=== PATIENT | male | born 1950 | race Caucasian/White ===

== ENCOUNTER → 2023-06-02 15:06 | Outpatient (REF) | payer MEDICARE, SELFPAY | LOC: RAD 15:06 | PROVIDERS: ATTENDING PHYSICIAN Nurse Practitioner Family | DX: M54.50 Low back pain, unspecified (principal); M54.2 Cervicalgia | CPT/HCPCS: 72050; 72110 ==

== ENCOUNTER → 2023-06-10 07:40 | Outpatient (REF) | payer MEDICARE, SELFPAY | LOC: EMG 07:40 | PROVIDERS: ATTENDING PHYSICIAN Nurse Practitioner Family | DX: R20.2 Paresthesia of skin (principal); R20.0 Anesthesia of skin; M54.12 Radiculopathy, cervical region | CPT/HCPCS: 95886; 95911 ==

== ENCOUNTER → 2023-07-07 15:59 | Outpatient (REF) | payer MEDICARE, SELFPAY | LOC: RAD 15:59 | PROVIDERS: ATTENDING PHYSICIAN Nurse Practitioner Family | DX: M25.552 Pain in left hip (principal) | CPT/HCPCS: 73502 ==

== ENCOUNTER → 2023-07-28 15:03 | Outpatient (REF) | payer MEDICARE, SELFPAY | LOC: RAD 15:03 | PROVIDERS: ATTENDING PHYSICIAN Physical Medicine & Rehabilitation; FAMILY PHYSICIAN Internal Medicine | DX: M54.16 Radiculopathy, lumbar region (principal) | CPT/HCPCS: 72131 ==

== ENCOUNTER → 2023-08-10 14:00 | Outpatient (REF) | payer MEDICARE, SELFPAY | LOC: RCS 14:00 | PROVIDERS: ATTENDING PHYSICIAN Physical Medicine & Rehabilitation; FAMILY PHYSICIAN Family Medicine | DX: Z01.818 Encounter for other preprocedural examination (principal) | CPT/HCPCS: 93005 ==

== ENCOUNTER → 2023-09-28 09:34 | Outpatient (REF) | payer MEDICARE, SELFPAY | LOC: RAD 09:34 | PROVIDERS: ATTENDING PHYSICIAN Surgery Vascular Surgery; FAMILY PHYSICIAN Internal Medicine Geriatric Medicine | DX: I71.02 Dissection of abdominal aorta (principal) | CPT/HCPCS: 76770 ==

== ENCOUNTER → 2024-01-21 09:09 | Outpatient (REF) | payer MEDICARE, SELFPAY ==
[2024-01-21 10:02] LABS: % Basophils 0.8 % (0-2); % Eosinophils 2.6 % (0-6); % Immature Granulocytes 0.2 % (0-0.5); % Lymphocytes 22.5 % (20.5-51.1); % Neutrophils 63.9 % (42.2-75.2); Absolute Eosinophils 0.1 10^3/uL (0-0.7); Absolute Lymphocytes 1.1 10^3/uL (1.2-3.4); Absolute Monocytes 0.5 10^3/uL (0.1-0.6); Absolute Neutrophils 3.2 10^3/uL (1.4-6.5); Hematocrit 33.1 % (39.0-52.0); Hemoglobin 10.2 g/dL (13.0-18.0); Mean Corp Hgb Conc. 30.8 g/dL (33.0-37.0); Mean Corpuscular Hgb 30.9 pg (27.0-31.0); Mean Corpuscular Volume 100.3 fL (80.0-94.0); Mean Platelet Volume 9.7 fL (7.4-10.4); Nucleated Red Blood Cells % 0 % (-); Platelet Count 291 10^3/uL (130-400); Red Cell Dist. Width 13.9 % (11.5-14.5)
[2024-01-21 10:57] LABS: ALT (SGPT) 18 U/L (0-50); AST (SGOT) 30 U/L (17-59); Albumin 3.9 g/dl (3.5-5.0); Alkaline Phosphatase 46 U/L (38-126); Blood Urea Nitrogen 15 mg/dl (9-20); Calcium 9.7 mg/dl (8.4-10.2); Carbon Dioxide 27 mmol/L (22-30); Chloride 106 mmol/L (98-107); Glucose 86 mg/dl (70-99); HDL Cholesterol 76 mg/dl; LDL Cholesterol, Calculated 75 mg/dl; Potassium 4.9 mmol/L (3.5-5.1); Sodium 142 mmol/L (135-145); Total Bilirubin 0.4 mg/dl (0.2-1.3); Total Cholesterol 164 mg/dl (50-199); Triglyceride 67 mg/dl (10-149); Very Low Density Lipoprotein 13 mg/dl (0-30); eGFR > 60.00
[2024-01-21 11:12] LABS: Vitamin D, 25-OH*** 45.6 ng/mL (30-80)
[2024-01-21 16:38] LABS: Urine Albumin Negative (Neg - Trace); Urine Bilirubin Negative (Negative); Urine Character Clear (Clear); Urine Color Straw; Urine Glucose Negative (Negative); Urine Ketone Negative (Negative); Urine Leukocyte Negative (Negative); Urine Nitrite Negative (Negative); Urine Occult Blood Negative (Negative); Urine Urobilinogen Negative (Neg - 1+)
== END ==
LOC: OLABPV 09:09
PROVIDERS: ATTENDING PHYSICIAN Internal Medicine Geriatric Medicine
DX: E78.00 Pure hypercholesterolemia, unspecified (principal); I25.2 Old myocardial infarction; I50.22 Chronic systolic (congestive) heart failure; Z95.1 Presence of aortocoronary bypass graft; R42 Dizziness and giddiness; H81.13 Benign paroxysmal vertigo, bilateral; E55.9 Vitamin D deficiency, unspecified; G60.3 Idiopathic progressive neuropathy; Z13.89 Encounter for screening for other disorder; D64.9 Anemia, unspecified; M25.552 Pain in left hip
CPT/HCPCS: 36415; 80053; 80061; 81003; 82306; 85025

== ENCOUNTER → 2024-05-03 14:33 | Outpatient (REF) | payer MEDICARE, SELFPAY | LOC: RAD 14:33 | PROVIDERS: ATTENDING PHYSICIAN Internal Medicine Geriatric Medicine | DX: E78.00 Pure hypercholesterolemia, unspecified (principal); I71.02 Dissection of abdominal aorta; I25.2 Old myocardial infarction; I50.22 Chronic systolic (congestive) heart failure; Z95.1 Presence of aortocoronary bypass graft; R42 Dizziness and giddiness; H81.13 Benign paroxysmal vertigo, bilateral; E55.9 Vitamin D deficiency, unspecified; G60.3 Idiopathic progressive neuropathy; Z13.89 Encounter for screening for other disorder; D64.9 Anemia, unspecified; M25.552 Pain in left hip; M75.41 Impingement syndrome of right shoulder | CPT/HCPCS: 72110; 72202 ==

== ENCOUNTER → 2024-06-20 09:52 | Outpatient (REF) | payer MEDICARE, SELFPAY | LOC: RAD 09:52 | PROVIDERS: ATTENDING PHYSICIAN Internal Medicine Geriatric Medicine | DX: M89.9 Disorder of bone, unspecified (principal); Z13.820 Encounter for screening for osteoporosis; M85.80 Other specified disorders of bone density and structure, unspecified site; M81.0 Age-related osteoporosis without current pathological fracture | CPT/HCPCS: 77080 ==

== ENCOUNTER → 2024-07-14 12:10 | Outpatient (REF) | payer MEDICARE, SELFPAY ==
[2024-07-14 12:33] LABS: % Basophils 0.7 % (0-2); % Eosinophils 0.7 % (0-6); % Immature Granulocytes 0.2 % (0-0.5); % Lymphocytes 19.2 % (20.5-51.1); % Monocytes 7.9 % (1.7-9.3); % Neutrophils 71.3 % (42.2-75.2); Absolute Lymphocytes 1.2 10^3/uL (1.2-3.4); Absolute Monocytes 0.5 10^3/uL (0.1-0.6); Absolute Neutrophils 4.4 10^3/uL (1.4-6.5); Hematocrit 39.5 % (39.0-52.0); Hemoglobin 12.7 g/dL (13.0-18.0); Mean Corp Hgb Conc. 32.2 g/dL (33.0-37.0); Mean Corpuscular Hgb 30.5 pg (27.0-31.0); Mean Corpuscular Volume 94.7 fL (80.0-94.0); Nucleated Red Blood Cells % 0 % (-); Platelet Count 296 10^3/uL (130-400); Red Blood Cell Count 4.17 10^6/uL (4.70-6.10); White Blood Cell Count 6.1 10^3/uL (4.8-10.8)
[2024-07-14 12:47] LABS: ALT (SGPT) 26 U/L (0-50); AST (SGOT) 33 U/L (17-59); Albumin 4.4 g/dl (3.5-5.0); Alkaline Phosphatase 52 U/L (38-126); Blood Urea Nitrogen 16 mg/dl (9-20); Carbon Dioxide 25 mmol/L (22-30); Chloride 110 mmol/L (98-107); Glucose 80 mg/dl (70-99); HDL Cholesterol 62 mg/dl; LDL Cholesterol, Calculated 80 mg/dl; Potassium 4.7 mmol/L (3.5-5.1); Sodium 142 mmol/L (135-145); Total Bilirubin 0.5 mg/dl (0.2-1.3); Total Cholesterol 156 mg/dl (50-199); Total Protein 6.8 g/dl (6.3-8.2); Triglyceride 71 mg/dl (10-149); Very Low Density Lipoprotein 14 mg/dl (0-30); eGFR 56.93
[2024-07-14 13:08] LABS: Urine Character Clear (Clear); Urine Color Yellow
[2024-07-14 13:09] LABS: Urine Albumin Negative (Neg - Trace); Urine Glucose Negative (Negative); Urine Ketone Negative (Negative); Urine Leukocyte Negative (Negative); Urine Nitrite Negative (Negative); Urine Occult Blood 1+ (Negative); Urine Specific Gravity 1.015 (<1.030); Urine Urobilinogen Negative (Neg - 1+); Vitamin D, 25-OH*** 38.7 ng/mL (30-80)
[2024-07-14 13:10] LABS: Urine Bilirubin Negative (Negative)
[2024-07-14 14:54] LABS: Urine Amorphous Seen; Urine Squamous Cell 0-2 /LPF (Few)
[2024-07-14 14:55] LABS: Urine Red Blood Cell 0-2 /HPF (0-2); Urine White Cell 0-2 /HPF (0-5)
== END ==
LOC: OLABPV 12:10
PROVIDERS: ATTENDING PHYSICIAN Internal Medicine Geriatric Medicine
DX: E78.00 Pure hypercholesterolemia, unspecified (principal); I71.02 Dissection of abdominal aorta; I25.2 Old myocardial infarction; I50.22 Chronic systolic (congestive) heart failure; Z95.1 Presence of aortocoronary bypass graft; R42 Dizziness and giddiness; H81.13 Benign paroxysmal vertigo, bilateral; E55.9 Vitamin D deficiency, unspecified; G60.3 Idiopathic progressive neuropathy; D64.9 Anemia, unspecified; M25.552 Pain in left hip; M75.41 Impingement syndrome of right shoulder; I95.1 Orthostatic hypotension
CPT/HCPCS: 36415; 80053; 80061; 81003; 81015; 82306; 85025

== ENCOUNTER → 2024-08-09 10:27 | Outpatient (REF) | payer MEDICARE, SELFPAY ==
[2024-08-09 10:59] LABS: % Basophils 0.9 % (0-2); % Eosinophils 1.5 % (0-6); % Immature Granulocytes 0.4 % (0-0.5); % Lymphocytes 20.9 % (20.5-51.1); % Monocytes 7.8 % (1.7-9.3); % Neutrophils 68.5 % (42.2-75.2); Absolute Basophils 0.1 10^3/uL (0-0.2); Absolute Eosinophils 0.1 10^3/uL (0-0.7); Absolute Lymphocytes 1.1 10^3/uL (1.2-3.4); Absolute Monocytes 0.4 10^3/uL (0.1-0.6); Absolute Neutrophils 3.6 10^3/uL (1.4-6.5); Hematocrit 36.9 % (39.0-52.0); Hemoglobin 11.6 g/dL (13.0-18.0); Mean Corp Hgb Conc. 31.4 g/dL (33.0-37.0); Mean Corpuscular Hgb 30.3 pg (27.0-31.0); Mean Corpuscular Volume 96.3 fL (80.0-94.0); Mean Platelet Volume 9.6 fL (7.4-10.4); Nucleated Red Blood Cells % 0 % (-); Platelet Count 245 10^3/uL (130-400); Red Blood Cell Count 3.83 10^6/uL (4.70-6.10); Red Cell Dist. Width 14.8 % (11.5-14.5); White Blood Cell Count 5.3 10^3/uL (4.8-10.8)
[2024-08-09 11:21] LABS: ALT (SGPT) 15 U/L (0-50); AST (SGOT) 34 U/L (17-59); Albumin 4.3 g/dl (3.5-5.0); Alkaline Phosphatase 49 U/L (38-126); Blood Urea Nitrogen 16 mg/dl (9-20); Calcium 9.6 mg/dl (8.4-10.2); Carbon Dioxide 24 mmol/L (22-30); Chloride 106 mmol/L (98-107); Glucose 76 mg/dl (70-99); Potassium 4.3 mmol/L (3.5-5.1); Sodium 136 mmol/L (135-145); Total Bilirubin 0.6 mg/dl (0.2-1.3); Total Protein 6.5 g/dl (6.3-8.2); eGFR 56.93
[2024-08-09 12:18] LABS: NT-proBNP 745 pg/ml
== END ==
LOC: OLABPV 10:27
PROVIDERS: ATTENDING PHYSICIAN Internal Medicine Geriatric Medicine
DX: E78.00 Pure hypercholesterolemia, unspecified (principal); I71.02 Dissection of abdominal aorta; I25.2 Old myocardial infarction; I50.22 Chronic systolic (congestive) heart failure; Z95.1 Presence of aortocoronary bypass graft; R42 Dizziness and giddiness; H81.13 Benign paroxysmal vertigo, bilateral; E55.9 Vitamin D deficiency, unspecified; G60.3 Idiopathic progressive neuropathy; D64.9 Anemia, unspecified; M25.552 Pain in left hip; Z13.89 Encounter for screening for other disorder; M75.41 Impingement syndrome of right shoulder; I95.1 Orthostatic hypotension
CPT/HCPCS: 36415; 80053; 83880; 85025

== ENCOUNTER → 2024-08-25 09:38 | Outpatient (REF) | payer MEDICARE, SELFPAY ==
[2024-08-25 11:04] LABS: % Basophils 0.9 % (0-2); % Eosinophils 2.1 % (0-6); % Immature Granulocytes 0.3 % (0-0.5); % Lymphocytes 22.4 % (20.5-51.1); % Monocytes 8.5 % (1.7-9.3); % Neutrophils 65.8 % (42.2-75.2); Absolute Basophils 0.1 10^3/uL (0-0.2); Absolute Eosinophils 0.1 10^3/uL (0-0.7); Absolute Lymphocytes 1.3 10^3/uL (1.2-3.4); Absolute Monocytes 0.5 10^3/uL (0.1-0.6); Absolute Neutrophils 3.8 10^3/uL (1.4-6.5); Hematocrit 43.1 % (39.0-52.0); Hemoglobin 13.7 g/dL (13.0-18.0); Mean Corp Hgb Conc. 31.8 g/dL (33.0-37.0); Mean Corpuscular Hgb 30.7 pg (27.0-31.0); Mean Corpuscular Volume 96.6 fL (80.0-94.0); Mean Platelet Volume 9.9 fL (7.4-10.4); Nucleated Red Blood Cells % 0 % (-); Platelet Count 330 10^3/uL (130-400); Red Blood Cell Count 4.46 10^6/uL (4.70-6.10); Red Cell Dist. Width 13.9 % (11.5-14.5); White Blood Cell Count 5.8 10^3/uL (4.8-10.8)
[2024-08-25 11:35] LABS: Iron 97 ug/dl (49-181)
[2024-08-25 11:47] LABS: Percent Saturation 28 % (20-50); Total Iron Binding Capacity 336 ug/dl (261-462)
[2024-08-25 12:17] LABS: Ferritin 37.8 ng/ml (17.9-464.0)
== END ==
LOC: OLABPV 09:38
PROVIDERS: ATTENDING PHYSICIAN Internal Medicine Geriatric Medicine
DX: E78.00 Pure hypercholesterolemia, unspecified (principal); I25.2 Old myocardial infarction; I50.22 Chronic systolic (congestive) heart failure; Z95.1 Presence of aortocoronary bypass graft; R42 Dizziness and giddiness; H81.13 Benign paroxysmal vertigo, bilateral; E55.9 Vitamin D deficiency, unspecified; G60.3 Idiopathic progressive neuropathy; D64.9 Anemia, unspecified; M25.552 Pain in left hip; Z13.89 Encounter for screening for other disorder; M75.41 Impingement syndrome of right shoulder; I95.1 Orthostatic hypotension
CPT/HCPCS: 36415; 82728; 83540; 83550; 85025

== ENCOUNTER → 2024-10-05 07:52 | Outpatient (REF) | payer MEDICARE, SELFPAY | LOC: REG 07:52 | PROVIDERS: ATTENDING PHYSICIAN Physician Assistant; FAMILY PHYSICIAN Internal Medicine Geriatric Medicine | DX: I71.02 Dissection of abdominal aorta (principal) | CPT/HCPCS: 36415; 76770 ==

== ENCOUNTER 2024-12-19 18:23 | Inpatient (IN) | payer MEDICARE, SELFPAY ==
[2024-12-19] VITALS (8 sets, daily range): BP systolic 109–147; BP diastolic 56–83; BMI 24.5
[2024-12-19 11:00] LABS: Hematocrit 40.7 % (39.0-52.0); Hemoglobin 12.9 g/dL (13.0-18.0); Mean Corp Hgb Conc. 31.7 g/dL (33.0-37.0); Mean Corpuscular Volume 97.4 fL (80.0-94.0); Nucleated Red Blood Cells % 0 % (-); Platelet Count 212 10^3/uL (130-400); Red Cell Dist. Width 15.1 % (11.5-14.5)
[2024-12-19 11:14] LABS: ALT (SGPT) 21 U/L (0-50); AST (SGOT) 52 U/L (17-59); Albumin 4.5 g/dl (3.5-5.0); Alkaline Phosphatase 41 U/L (38-126); Blood Urea Nitrogen 21 mg/dl (9-20); Calcium 9.5 mg/dl (8.4-10.2); Carbon Dioxide 21 mmol/L (22-30); Chloride 111 mmol/L (98-107); Glucose 127 mg/dl (70-99); Potassium 3.9 mmol/L (3.5-5.1); Sodium 142 mmol/L (135-145); Total Protein 6.9 g/dl (6.3-8.2); eGFR 47.95
--- NOTE | 2024-12-19 12:26 | ED.GENMED ---
History of Present Illness
General
Chief Complaint: Change in Mental Status
Source: patient and spouse
Exam Limitations: none
Time Seen by Provider: 12/19/24 11:31
Nursing documentation reviewed up to this point in time: agreed with
History of Present Illness
History of Present Illness:
Patient is a 74-year-old male presents to the ED for evaluation. at bedside reports patient started with hallucinations on Wednesday both auditory and visual. This is a sudden change. Patient has a little bit of intermittent confusion in the
past but nothing out of the ordinary as per . but she does report that she is also worried that there may be a Parkinson's component. He has never been diagnosed with Parkinson's but he does seem to have issues walking he seems very stiff at
times. He notes that he is getting 27. They were sent by family doctor.
Patient's medications include methocarbamol aspirin Lipitor and a metoprolol.
Phy Exam
General Physical Exam
General Presentation: no apparent distress
General age: appears stated age
General Skin: warm and dry
General Habitus: elderly
General Mental: alert
General Hydration: appears well hydrated
Cardiovascular Exam
Cardiovascular Exam: regular rate/rhythm, no murmur and normal peripheral pulses
Pulmonary Exam
Pulmonary Exam: lungs clear and no respiratory distress
Neurological Exam
Neurological Exam: alert and oriented x3
Musculoskeletal Exam
Musculoskeletal Exam: full ROM
Skin Exam
Skin Exam: normal color and warm/dry
Psychiatric Exam
Psychiatric Exam: normal mood/affect
Course
Orders/Labs/Results
Orders:
Orders
12/19/24 10:47
CMP [Comprehensive Metabolic Panel] Urgent
Complete Blood Count/With Diff Urgent
Urinalysis Reflex To Culture Urgent
Date Specimen was Collected: 12/19/24
Time Specimen was Collected: 10:37
Urine Microscopic Reflex Cult Urgent
12/19/24 12:43
CT Head W/o Iv Contrast Urgent
Comment:
Reason For Exam: change in MS
12/19/24 12:53
0.9% Sodium Chloride 1000 ml [Nss] 1,000 ml IV BOLUS
Abnormal Lab Results
12/19/24
10:47
WBC 4.1 L 10^3/uL
(4.8-10.8)
RBC 4.18 L 10^6/uL
(4.70-6.10)
Hgb 12.9 L g/dL
(13.0-18.0)
MCV 97.4 H fL
(80.0-94.0)
MCHC 31.7 L g/dL
(33.0-37.0)
RDW 15.1 H %
(11.5-14.5)
Absolute Lymphs (auto) 1.0 L 10^3/uL
(1.2-3.4)
Chloride 111 H mmol/L
(98-107)
Carbon Dioxide 21 L mmol/L
(22-30)
BUN 21 H mg/dl
(9-20)
Creatinine 1.5 H mg/dL
(0.7-1.3)
Glucose 127 H mg/dl
(70-99)
Urine Ketones 1+ A
(Negative)
Ur Occult Blood Reflex 2+ A
(Negative)
Urine Bacteria (Reflex) Few A
(Negative)
Urine Albumin (Reflex) 2+ A
(Neg - Trace)
12/19/24 10:47
12/19/24 10:47
Vital Signs
Initial and Last Documented VS:
Initial Vital Signs
Temp Pulse Resp BP Pulse Ox
97.9 F 63 18 110/59 100
12/19/24 10:30 12/19/24 10:30 12/19/24 10:30 12/19/24 10:30 12/19/24 10:30
Last Documented Vital Signs
Temp Pulse Resp BP Pulse Ox
97.9 F 57 14 109/83 100
12/19/24 10:30 12/19/24 14:15 12/19/24 14:15 12/19/24 14:00 12/19/24 12:27
Lime Sludge Mixer consulted with Physician
Lime Sludge Mixer consulted with physician?: Yes
Name of Physician Consulted: Elias
MDM/Problems Addressed
Differential Diagnosis Includes:
Not limited to acute infection dehydration dementia/congnitive cause
MDM/Problems Addressed:
As documented patient is a 74-year-old male brought in by for hallucinations over the weekend. She reports this is all new for patient. He is awake alert he is confused as to why he is here. He does follow commands. He himself has no
complaints. CAT scan is unremarkable no neurological deficits. He is mildly dehydrated on all labs. UA negative.
*Radiology
Radiology exam reviewed: radiology read reviewed
*Pulse Oximetry
SaO2: 100
Oxygen Mode of Delivery: Room air
Patient hypoxic: no
*Critical Care Note
Total Time (30-74mins, 75-104mins- exclusive of procedures): Not Applicable
ED Attending Note
-
Portions of this chart may have been created with voice recognition software.� Occasional wrong word or��sound alike� substitutions may have occurred due to the inherent limitations of voice recognition software.
Discharge Plan
Departure
Patient Disposition: Admit
Date of Disposition: 12/19/24
Time of Disposition: 15:06
Admit to: Med/Surg
Admit to doctor: hospitalist
Presentation/result/management discussed w/ accepting MD/DO: Hospitalist
Patient with high blood pressure during this ER visit?: No
Condition: Fair
Discharge Problem:
Hallucinations, Altered mental status
Referrals:
Job Cruz MD [Family Provider, Internal Medicine]
Interventions
Interventions:
*Risk Screen - Suicide Last Done: 12/19/24 10:30
*General Assessment Last Done: 12/19/24 10:30
*Neglect/Abuse Screening Last Done: 12/19/24 10:30
*ED- Fall Risk Assessment Last Done: 12/19/24 10:36
*ED COVID-19 Vaccine History Last Done: 12/19/24 10:36
*ED Influenza Vaccine History Last Done: 12/19/24 10:36
ED- Pulmonary Assessment Last Done: 12/19/24 12:17
ED- Neurological Assessment Last Done: 12/19/24 12:17
ED- Cardiac Assessment Last Done: 12/19/24 12:17
ED Swallowing Screen Last Done: 12/19/24 12:17
Discharge Date and Time
Print Language: SYRIAC
[2024-12-19 12:34] LABS: Urine Character Slightly Cloudy (Clear)
[2024-12-19 12:45] LABS: Urine Squamous Cell 0-2 /LPF (Few)
[2024-12-19 12:46] LABS: Urine Red Blood Cell 0-2 /HPF (0-2)
[2024-12-19] MEDS: NSS 1000 IV ×2 (13:08→22:43)
--- NOTE | 2024-12-19 15:32 | HPS.HSE ---
Addendum entered and electronically signed by Marina Chaidez MD 12/19/24 19:16:
I personally performed a history and physical exam of the patient and discussed management with the resident. I reviewed the resident's note and agree with the documented findings and plan of care HPI/CC.
GENERAL: well developed, well nourished, male in no apparent distress
HEENT: NC/AT--no O2 requirements
HEART: regular rate and rhythm, +S1, +S2
LUNGS : clear to auscultation bilaterally
ABDOM: soft, nontender, nondistended, + bowel sounds
EXT: no cyanosis, clubbing, or edema
NEUROLOGIC: strength 5/5 x 4 ext, right facial droop/flattening of nasolabial fold ( relates that this is new)
Hallucinations--visual and auditory--pt states that he does see what he sees despite what his says--head CT without acute findings--broad differential--infection, metabolic, medication over or underdosing, malignancy, vitamin deficiencies,
dementia/Parkinson's etc, stroke, seizures--consult psych/neuro--check EEG, brain MRI, B12, folate, TSH, NH3 levels--would start thiamine, check tox screen, blood and urine cultures, CXR, acetaminophen and salicylate levels--PT/OT/speech
Ambulatory dysfunction� PT and OT
Insomnia� Melatonin
CAD s/p CABG x 4� Continue aspirin 162 mg p.o. daily� Continue to hold statin 40 mg p.o. nightly� Continue metoprolol succinate 25 mg p.o. daily
Lower back pain-� Continue methocarbamol 750 mg p.o. nightly
DVT Proph-- SC lovenox
CODE STATUS-- Full code
Original Note:
Family Physician
-
Family Physician: Job Cruz
Chief Complaint
-
Hallucinations
History of Present Illness
Mr. Osvaldo Carrera is a 74-year-old male with a PMH notable for CAD s/p CABG x 4, heart failure hospitalization in 2020, left hip repair in 2020 after a fall, bilateral L5 steroid injection, cataracts s/p surgery, who is presenting with
hallucinations that started 4 days ago and gradual gait changes.
4 days ago at 4:30 AM, he woke his up fully dressed and was not sure if it was day or night. He heard people in a part of their house, whereas his did not hear anyone. The denies the patient having had hallucinations before. The
patient has also become fixated on his posters.
The noticed that the patient's walking has become slow. The demonstrated the patient's walking as 1 step at a time or shuffling (the patient's gait appeared normal on an abbreviated gait exam; the patient does not always have shuffling
gait). The patient's states that it is difficult for her to get him to step onto a small curb. They live in a one-story place without steps. The patient's endorsed him turning en bloc, furniture surfing with a preference for the right
side. She denied tremors nor falls. She endorsed him seeming more mentally clear in the morning, suggesting sundowning. The patient drives. The denies him getting lost, but endorses him misplacing objects/losing track of objects.
The patient endorsed tingling in his hands and feet, as well as his feet easily getting cold and then feeling numb. The endorsed decreased appetite for a week. The patient denied sick contacts.
History obtained from patient and ; patient appears to have memory difficulties.
Social history:
Quit smoking in 1991. Smoked for 25 years, up to 2 packs/day. Endorses starting lung cancer screening outpatient.
Quit drinking alcohol 32 years ago.
Medical History
Past Medical History
Past Medical History: Reports CAD (S/p CABG x 4), CHF (Heart failure hospitalization in 2020), Dementia and Other (Lower back pain s/p bilateral L5 steroid injection); Denies Asthma, Cancer, COPD, HTN, IDDM or NIDDM
Past Surgical History: Reports Orthopedic (Left hip repair after a fall in 2020) and Other (Cataract surgery)
Social History
Tobacco: Former Smoker (Quit smoking in 1991. Smoked for 25 years, up to 2 packs/day.)
Alcohol: Former (Endorses starting lung cancer screening outpatient. Quit drinking alcohol 32 years ago.)
Drug: None
Personal:
Living: With Family
Employment: Retired
Family History
Family History: Other (Father passed of ruptured abdominal aortic aneurysm at 59 years old; mother passed at 75 natural causes)
Allergies / Home Medications
Allergies reflects when Allergies were last updated in [employer].
Home Medications with original date entered in [employer]
Allergy/Medication List:
Allergies
Allergy/AdvReac Type Severity Reaction Status Date / Time
naproxen (From Naprosyn) Allergy Hives Verified 12/19/24 10:29
Home Medications
ascorbic acid (vitamin C) 1,000 mg tablet (Vitamin C) 2,000 mg PO DAILY 12/19/24
aspirin 81 mg tablet,delayed release 162 mg PO DAILY 12/19/24
atorvastatin 40 mg tablet 40 mg PO HS 12/19/24
methocarbamol 750 mg tablet 750 mg PO HS 12/19/24
metoprolol succinate 25 mg tablet,extended release 24 hr 25 mg PO DAILY 12/19/24
Review of Systems
-
History Source: Patient and Family
Constitutional: Reports No Symptoms
EENT: Reports No Symptoms
Respiratory: Reports No Symptoms
Cardiac: Reports No Symptoms
Abdomen/GI: Reports No Symptoms
: Reports No Symptoms
Musculoskeletal: Reports See HPI (Chronic lower back pain), Joint Pain (Right shoulder pain in addition to lower back pain) and Muscle Pain (Lower leg pain with walking, which may be claudication)
Neurological: Reports See HPI, Dizzy, Weakness (His legs get weak quicker than before) and Numbness
Endocrine: Reports Polyuria
Psych: Reports See HPI and Audio or Visual Hallucinations
Physical Exam
Vital Signs
Vital Signs
Temp Pulse Resp BP Pulse Ox
97.9 F 57 14 109/83 100
12/19/24 10:30 12/19/24 14:15 12/19/24 14:15 12/19/24 14:00 12/19/24 12:27
Physical Exam
General: Well Developed, Well Nourished, No Apparent Distress, Comfortable and Conversant
HEENT: NormoCephalic, Anicteric, Atraumatic, Nose Appears Normal and Ears Appear Normal; No Oxygen
Respiratory: Clear and Non Labored Respirations
Cardiac: S1/S2 and Regular Rhythm; No Peripheral Edema
GI: Soft, Non Tender, Non Distended, Normal Bowel Sounds and Flat
Genito-urinary: No Maradiaga
Skin: Warm
Neuro: Awake, Alert, No Motor Deficits (Strength 5 out of 5 to elbow flexion and extension, finger flexion, hip flexion), Cranial Nerves Intact and Facial Droop (Mild right facial droop); No Slurred Speech or Tremors
Psych: Calm and Apparent Dementia
Laboratory Results
-
12/19/24 10:47
12/19/24 10:47
Laboratory Results
Total Bilirubin 0.5 mg/dl (0.2-1.3) 12/19/24 10:47
AST 52 U/L (17-59) 12/19/24 10:47
ALT 21 U/L (0-50) 12/19/24 10:47
Alkaline Phosphatase 41 U/L (38-126) 12/19/24 10:47
Impression/Plan
-
IMPRESSION:
Mr. Osvaldo Carrera is a 74-year-old man with a PMH notable for CAD s/p CABG x 4, heart failure hospitalization 2019, lower back pain s/p bilateral L5 steroid injection, left hip repair after fall, cataract s/p surgery, who presented with auditory
and visual hallucinations in the setting of chronic changes in memory and gait.
ED course:
Mild dehydration with creatinine of 1.5 (baseline 1.2), consistent with history of decreased appetite for 1 week in the setting of mental status changes.
CT head noncon:
FINDINGS:
Mild age-related parenchymal atrophy. No intra- or extra-axial mass, hemorrhage, or fluid collection. Mild subcortical, deep, and periventricular white matter low-attenuation, compatible with changes of chronic small vessel ischemic disease. The
imaged paranasal sinuses and mastoid air cells are clear.
IMPRESSION:
No acute intracranial abnormality.
PLAN:
#Hallucinations
CT head noncontrast: No acute intracranial abnormality. Mild age-related parenchymal atrophy. No intra- or extra-axial mass, hemorrhage, or fluid collection. Mild subcortical, deep, and periventricular white matter low-attenuation, compatible with
changes of chronic small vessel ischemic disease.
Neurologic workup
� Brain MRI with and without contrast pending. 0.5 mg Ativan p.o. on-call for MRI. Also recommended eye mask and earbuds
� Neurology consulted
� EEG pending
� Psychiatry consulted
Metabolic workup
� B12, folate
� Thiamine supplementation 200 mg daily
� TSH
� Daily CMP
Toxicology workup: Patient denied missing home meds or double dosing
� Urine tox psychology screen
� Serum Tylenol, salicylate, ammonia
Infectious workup: No UTI on UA
� Chest x-ray
� Daily CBC
DRILLER OPERATOR therapy consult: Requested they perform a MMSE
#Ambulatory dysfunction
� PT and OT
#Insomnia
� Melatonin 500 mg p.o. nightly
#CAD s/p CABG x 4
� Continue aspirin 162 mg p.o. daily
� Continue to hold statin 40 mg p.o. nightly
� Continue metoprolol succinate 25 mg p.o. daily
#Lower back pain
� Continue methocarbamol 7 to 50 mg p.o. nightly
DVT PPx: Enoxaparin 40 mg subcutaneous every afternoon
Diet: Regular
Bowel regimen
CODE STATUS: Full code
--- NOTE | 2024-12-19 16:37 | CM ---
Patient lives with in apartment at [facility], independent living apartment. Patient indicated that patient was having some problems with walking and has been having hallucinations. Patient PCP is Dr. Cruz and he uses the [facility] per
chart review. Patient has stepped out of the ED. CM will continue to follow for discharge planning needs.
Plan; home with VN vs SNF; pending medical treatment plan
--- NOTE | 2024-12-19 21:55 | PTCARENOTE ---
Pt received from ED to rm [id number]. Pt oriented to room and call pineda.
[2024-12-19] MEDS: LIPITOR 40 MG PO (22:35)
[2024-12-19] MEDS: MELATONIN 5 MG PO (22:35)
[2024-12-19] MEDS: TOPROL XL 25 MG PO (22:36)
[2024-12-19] MEDS: METHOCARBAMOL 750 MG PO (22:36)
[2024-12-19] MEDS: LOVENOX 40 MG SC (23:11)
--- NOTE | 2024-12-20 02:17 | DOWNTIME ---
There was a [employer] Client [employer]il [employer]aper Downtime on 12/20/2024 from 0100 to 12/20/2024 at 0215. Downtime documentation of patient's care, including medication administrations, has been reconciled in the electronic record per guidelines. Refer to the
patient's paper chart under the miscellaneous tab to see printed paper medication records and downtime forms.
[2024-12-20 07:00] VITALS: BP 131/59
--- NOTE | 2024-12-20 07:26 | W.PN.HOSP.TC ---
Addendum entered and electronically signed by Marina Chaidez MD 12/20/24 17:03:
I saw and evaluated the patient independently. I reviewed and discussed the resident�s note and agree with findings and plan as documented by Dr. Brunner.
GENERAL: well developed, well nourished, male in no apparent distress
HEENT: NC/AT--no O2 requirements
HEART: regular rate and rhythm, +S1, +S2
LUNGS : clear to auscultation bilaterally
ABDOM: soft, nontender, nondistended, + bowel sounds
EXT: no cyanosis, clubbing, or edema
NEUROLOGIC: strength 5/5 x 4 ext, right facial droop/flattening of nasolabial fold ( relates that this is new)
Hallucinations--visual and auditory--pt states that he does see what he sees despite what his says--head CT without acute findings--broad differential--infection, metabolic, medication over or underdosing, malignancy, vitamin deficiencies,
dementia/Parkinson's etc, stroke, seizures--apprec neuro, await psych--check EEG, did not tolerate brain MRI (unclear if ear plugs, face mask, or ativan were used or given), low B12 noted--would give IM supplementation while in hospital followed by
oral supplementation at d/c)-- folate, TSH, NH3 levels--cont thiamine, tox screen neg, blood and urine cultures, CXR, acetaminophen level <10 and salicylate level 17 (pt on 162mg asa daily)--PT/OT/speech
Ambulatory dysfunction� PT and OT
Insomnia� Melatonin
CAD s/p CABG x 4� Continue aspirin 162 mg p.o. daily� Continue statin� Continue metoprolol succinate 25 mg p.o. daily
Lower back pain-� Continue methocarbamol 750 mg p.o. nightly
DVT Proph-- SC lovenox
CODE STATUS-- Full code
Original Note:
Today's Communication/Plan
-
Patient did not tolerate brain MRI.
B12 low 280; 1g PO supplement started. Thiamine supplement continued. Folate, TSH, UDS, serum Tylenol/salicylates/ammonia normal.
EEG: Mild to moderately abnormal EEG for age mild diffuse bihemispheric slowing. diffuse cortical dysfunction without focal abnormality.
Neuro consult: B12 and B1 supplementation.
Assessment / Plan
Assessment / Plan
IMPRESSION:
Mr. Osvaldo Carrera is a 74-year-old man with a PMH notable for CAD s/p CABG x 4, heart failure hospitalization 2019, lower back pain s/p bilateral L5 steroid injection, left hip repair after fall, cataract s/p surgery, who presented with auditory
and visual hallucinations in the setting of chronic memory and gait changes.
PLAN:
#Hallucinations
CT head noncontrast: No acute intracranial abnormality. Mild age-related parenchymal atrophy. No intra- or extra-axial mass, hemorrhage, or fluid collection. Mild subcortical, deep, and periventricular white matter low-attenuation, compatible with
changes of chronic small vessel ischemic disease.
� Baseline EKG 12/20/2024: Sinus bradycardia. When compared with ECG of 08/10/2023, ventricular rate has decreased by 37 bpm. QT shortened 361 ms (corrected)
Neurologic workup
� Brain MRI with and without contrast. 0.5 mg Ativan p.o. on-call for MRI. Also recommended eye mask and earbuds. Patient did not tolerate brain MRI.
� Neurology consulted: B12 1g PO. Agree with B1 supplement
� EEG: Mild to moderately abnormal EEG for age mild diffuse bihemispheric slowing. CLINICAL CORRELATION: diffuse cortical dysfunction without focal abnormality. No seizures were recorded. If concerns remain regarding seizures, consideration for
prolonged EEG recording may be given.
� Psychiatry consulted
Metabolic workup: folate, tsh normal
� B12 280 low. B12 1000 mg PO daily supplment
� Thiamine supplementation 200 mg daily
� Daily CMP
Toxicology workup: Patient denied missing home meds or double dosing
� Urine toxicology screen normal.
� Serum Tylenol, salicylate, ammonia normal
Infectious workup: No UTI on UA
� Chest x-ray
� Daily CBC
GLAZIER HELPER therapy consult: Requested they perform a MMSE
#Ambulatory dysfunction
� PT and OT recommended outpatient therapy
#Insomnia
� Melatonin 500 mg p.o. nightly
#CAD s/p CABG x 4
� Continue aspirin 162 mg p.o. daily
� Continue atorvastatin 40 mg p.o. nightly
� Continue metoprolol succinate 25 mg p.o. daily
#Lower back pain
� Continue methocarbamol 7 to 50 mg p.o. nightly
DVT PPx: Enoxaparin 40 mg subcutaneous every afternoon
Diet: Regular
Bowel regimen
CODE STATUS: Full code
Anticipated Discharge: 24 - 48 hours
Subjective/Interval History
-
Date of Service: December 20, 2024
No acute events overnight. Patient had no complaints this morning.
Objective Data
-
Labs:
Laboratory Results
Hematology and Coagulation - Last 24 hours
12/20/24 Range/Units
07:44
WBC 3.9 L (4.8-10.8) 10^3/uL
RBC 4.03 L (4.70-6.10) 10^6/uL
Hgb 12.3 L (13.0-18.0) g/dL
Hct 39.3 (39.0-52.0) %
MCV 97.5 H (80.0-94.0) fL
MCH 30.5 (27.0-31.0) pg
MCHC 31.3 L (33.0-37.0) g/dL
RDW 14.9 H (11.5-14.5) %
Plt Count 185 (130-400) 10^3/uL
MPV 9.9 (7.4-10.4) fL
Abs Immat Gran (auto) 0.0 (0-0.05) 10^3/uL
Absolute Neuts (auto) 2.5 (1.4-6.5) 10^3/uL
Absolute Lymphs (auto) 1.1 L (1.2-3.4) 10^3/uL
Absolute Monos (auto) 0.3 (0.1-0.6) 10^3/uL
Absolute Eos (auto) 0.0 (0-0.7) 10^3/uL
Absolute Basos (auto) 0.1 (0-0.2) 10^3/uL
Immature Gran % 0.0 (0-0.5) %
Neutrophils % 63.9 (42.2-75.2) %
Lymphocytes % 27.2 (20.5-51.1) %
Monocytes % 7.1 (1.7-9.3) %
Eosinophils % 0.5 (0-6) %
Basophils % 1.3 (0-2) %
Nucleated RBC % 0 (-) %
Blood Gas and Chemistry - Last 24 hours
12/20/24 Range/Units
07:44
Sodium 143 (135-145) mmol/L
Potassium 4.3 (3.5-5.1) mmol/L
Chloride 116 H (98-107) mmol/L
Carbon Dioxide 20 L (22-30) mmol/L
BUN 17 (9-20) mg/dl
Creatinine 1.2 (0.7-1.3) mg/dL
Estimated Creat Clear 51 ml/min
eGFR > 60.00
Glucose 74 (70-99) mg/dl
Calcium 8.8 (8.4-10.2) mg/dl
Magnesium 2.0 (1.6-2.3) mg/dl
Total Bilirubin 0.4 (0.2-1.3) mg/dl
AST 44 (17-59) U/L
ALT 19 (0-50) U/L
Alkaline Phosphatase 39 (38-126) U/L
Ammonia < 9 L (9-30) umol/L
Total Protein 6.1 L (6.3-8.2) g/dl
Albumin 3.9 (3.5-5.0) g/dl
Vitamin B12 280 (239-931) pg/ml
Folate 6.6 (2.76-20) ng/ml
TSH 1.08 (0.47-4.68) uIU/ml
Other lab results - Last 24 hours
12/19/24 12/20/24 Range/Units
10:47 07:44
Salicylates 17.1 (2.0-20.0) mg/dl
Urine Opiates Screen Negative (Negative)
Ur Buprenorphine Negative (Negative)
Ur Oxycodone Screen Negative (Negative)
Urine Methadone Screen Negative (Negative)
Acetaminophen < 10 L (10-30) ug/ml
Ur Barbiturates Screen Negative (Negative)
Ur Tricyclics Screen Negative (Negative)
Ur Phencyclidine Scrn Negative (Negative)
Ur Amphetamines Screen Negative (Negative)
U Methamphetamines Scrn Negative (Negative)
U Benzodiazepines Scrn Negative (Negative)
Urine Cocaine Screen Negative (Negative)
U Marijuana (THC) Screen Negative (Negative)
Vital Signs:
Vital Signs
Temp Pulse Resp BP Pulse Ox
97.4 F 65 18 132/77 100
12/19/24 22:15 12/19/24 22:36 12/19/24 22:15 12/19/24 22:36 12/19/24 22:15
Review of Systems
-
All other systems: Reviewed and negative
Physical Exam
-
General: Well Developed, Well Nourished, No Apparent Distress and Comfortable
HEENT: Normocephalic, Atraumatic, Nose Appears Normal and Ears Appear Normal
Respiratory: Clear to Auscultation
Cardiac: Regular Rhythm and S1/S2
GI: Soft, Nontender, Nondistended and Normal Bowel Sounds
Musculoskeletal: No Clubbing, No Cyanosis and No Edema
Skin: Warm and Dry
Neuro: Awake and Alert
Psych: Calm
[2024-12-20 08:10] LABS: Hematocrit 39.3 % (39.0-52.0); Hemoglobin 12.3 g/dL (13.0-18.0); Mean Corp Hgb Conc. 31.3 g/dL (33.0-37.0); Mean Corpuscular Volume 97.5 fL (80.0-94.0); Nucleated Red Blood Cells % 0 % (-); Platelet Count 185 10^3/uL (130-400); Red Cell Dist. Width 14.9 % (11.5-14.5)
--- NOTE | 2024-12-20 08:10 | CON.NEURO4 ---
Addendum entered and electronically signed by Shan Spangler MD 12/20/24 10:32:
Studies reviewed.
I have personally examined the patient. I reviewed and agree with the CHANGE MANAGEMENT ADMINISTRATOR's Note.
My addenda:
Awake, alert, interactive. No acute distress.
Speech intact.
Follows 2-step requests w/ difficulty. No tremor.
Extra-ocular movements grossly intact.
Facial movements full and symmetric. Hearing intact to normal conversational volume.
Normal UE movements bilaterally.
Neck: full ROM.
Chest: no dyspnea
Heart: no JVD
Ext: (-) Clubbing, (-) Cyanosis, (-) Edema
IMPRESSIONS/RECOMMENDATIONS:
Abrupt onset of hallucinations in a patient with mild cognitive impairment by examination today
Agree with provision of thiamine in a patient with prior history of alcohol overexposure
Agree with MRI of brain
Not clear patient would benefit from EEG evaluation
Check blood work for potential metabolic causes (low B12 level was found and will start cyanocobalamin).
No indication this time patient would benefit from the use of medications to treat parkinsonism
Consider outpatient evaluation for progressive neurodegenerative disorders
D/W patient
All questions answered.
Will continue to follow pending results.
Original Note:
Consultation - Neurology 4
-
CONSULTING PHYSICIAN: Shan Spangler MD
REFERRING PHYSICIAN: Hospitalists/Dr. Kannan MD Resident
DICTATED BY: LEVON Herrera
DATE/TIME OF REQUEST: 12/19/24
DATE/TIME OF CONSULTATION: 12/20/24
Reason for Consultation: Hallucinations
History of Present Illness:
This is a 74-year-old right-handed male who has presented to the hospital on 12/19/24 with report of hallucinations and gait dysfunction. Patient is a poor historian and some of this information is obtained from medical records. Per the patient's
, five days ago he woke up at 0430 fully dressed, reporting that people were talking in their house. She also notes that he has become fixated on pictures on the jones. The patient reports that their curtains at home have a frayed edge at the
top and he could 'see beyond it.' He also admits to hearing things that his reported she didn't hear. He denies any headache, dizziness, speech/swallow difficulty, numbness, and weakness. Per his , his gait has been shuffled, he has
difficulty lifting his feet over curbs, and he seems to furniture-surf mostly on his right side. He reports that his primarily pays the bills now, at some point he used to take care of more bill paying. He is still driving and denies any
issues. 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
Past Medical History: CAD, CHF, abdominal aorta dissection, chronic low back pain, vertigo
Surgical History: CABG x4, L hip repair, b/l cataract removal, L5 ANTHONY
Family History: Reviewed and noncontributory.
Social History: Former smoker. Former alcohol abuse. Denies illicit drug use.
Allergies: Naproxen.
Home Medications: See below.
Review of Symptoms:
Patient denies any fever, headache, chest pain, shortness of breath, GI or symptoms.
�Per the HPI.�All systems are reviewed negative except above.
Physical Exam:
The patient is afebrile, abdomen is nondistended, breathing is unlabored, skin is warm and dry, no edema.
Neurologic Examination:
The patient is awake, alert and oriented x 3. Next holiday- . Most recent holiday- can't recall, something in the second week of November. He is able to follow commands and answer questions appropriately. Mild difficulty following
two-step commands. There is no aphasia or dysarthria. On cranial nerve assessment, pupils are 3 mm bilateral, round and reactive to light and accommodation. Visual strong are full. Extraocular movements are intact. Facial sensations are intact and
bilaterally symmetrical, there is no facial asymmetry. Hearing is intact bilaterally to normal conversation volume. Tongue palate and uvula are midline. Sternocleidomastoid strengths are full bilaterally. Motor strengths are 5/5 bilateral upper and
lower extremities on medical research [place] scale. There is no drift or involuntary movement noted. Deep tendon reflexes are 2+ bilateral upper and lower extremities and Babinski is absent bilaterally. There was no extinction noted on double
simultaneous stimulation. Coordination is intact by finger to nose bilaterally.
Lab Results: See below.
Neuro Imaging:
1. CT Head 12/19/24: No acute intracranial abnormality.
2. EMG 06/11/23: Chronic/old right C5 and/or C6 radiculopathy based on electrodiagnostic abnormalities limited to the right biceps and brachioradialis muscles. Mild right median neuropathy at the wrist (carpal tunnel syndrome). There is no
electrodiagnostic evidence of muscle denervation. The nerve conduction study showed the median sensory nerve distal latency was prolonged and the median motor nerve distal latency was normal. There was no electrodiagnostic evidence of
mononeuropathy involving the left upper limb nor left cervical radiculopathy.
Differentials for the patient's presentation include:
1. Visual and auditory hallucinations; likely an underlying cognitive impairment process but he needs an outpatient workup to make this diagnosis. Cannot entirely exclude structural brain abnormality or metabolic disturbance contributing to
symptoms.
2. Vitamin B12 deficiency.
Patient has the following risk factors for their symptoms: Former alcohol abuse.
Recommendations:
-MRI brain w/ and w/o contrast pending.
-Routine EEG pending.
-Outpatient neuropsychological testing.
-Vitamin B12 level is low at 280, start cyanocobalamin 1000mcg PO daily.
-Initiate thiamine 100mg daily.
-PT/OT/ST evaluations.
-DVT prophylaxis.
Discussed patient care with: Dr. Spangler, the patient
Vital Signs and Labs
-
Vital Signs and Labs:
Vital Signs
Temp Pulse Resp BP Pulse Ox
97.4 F 65 18 132/77 100
12/19/24 22:15 12/19/24 22:36 12/19/24 22:15 12/19/24 22:36 12/19/24 22:15
Lab Results
12/20/24 07:44
Sodium 142 mmol/L (135-145) 12/19/24 10:47
Potassium 3.9 mmol/L (3.5-5.1) 12/19/24 10:47
BUN 21 mg/dl (9-20) H 12/19/24 10:47
Glucose 127 mg/dl (70-99) H 12/19/24 10:47
Calcium 9.5 mg/dl (8.4-10.2) 12/19/24 10:47
Ur Buprenorphine Negative (Negative) 12/19/24 10:47
Medications
-
Active Medications
Generic Name Dose Route Start Last Admin
Trade Name Freq PRN Reason Stop Dose Admin
Ascorbic Acid 2,000 mg 12/20/24 08:00
Ascorbic Acid 500 Mg Tablet PO 01/17/25 07:59
DAILY SHANE
Aspirin 162 mg 12/20/24 08:00
Aspirin 81 Mg (Enteric Coated) Tablet PO 01/17/25 07:59
DAILY SHANE
Atorvastatin Calcium 40 mg 12/19/24 22:00 12/19/24 22:35
Atorvastatin (Lipitor) 40 Mg Tablet PO 01/16/25 21:59 40 mg
HS SHANE Administration
Bisacodyl 10 mg 12/19/24 21:56
Bisacodyl 10 Mg Rectal Suppository RECTAL 01/16/25 21:55
[id number] PRN
constipation
Enoxaparin Sodium 40 mg 12/19/24 23:00 12/19/24 23:11
Enoxaparin Sodium 40 Mg/0.4 Ml Syringe SC 01/16/25 22:59 40 mg
QPM SHANE Administration
Sodium Chloride 1,000 mls @ 60 mls/hr 12/19/24 21:56 12/19/24 22:43
Nss IV 1,000 mls
.[id number] SHANE Administration
Methocarbamol 750 mg 12/19/24 22:00 12/19/24 22:36
Methocarbamol 750 Mg Tablet PO 01/16/25 21:59 750 mg
HS SHANE Administration
Metoprolol Succinate 25 mg 12/19/24 21:56 12/19/24 22:36
Metoprolol 25 Mg Extended Release Tablet PO 01/16/25 21:55 25 mg
DAILY SHANE Administration
Polyethylene Glycol 17 grams 12/19/24 21:56
Polyethylene Glycol Powder 17 Grams Packet PO 01/16/25 21:55
DAILYPRN PRN
constipation
Senna/Docusate Sodium 1 tablet 12/19/24 21:56
Docusate W/Senna (Susi-Colace) Tablet PO 01/16/25 21:55
BIDPRN PRN
constipation
Sodium Chloride 0 flush 12/19/24 19:00
Sodium Chloride 0.9% (Flush) Syringe IV 01/16/25 18:59
PER PROTOCOL SHANE
Thiamine HCl 100 mg 12/20/24 08:00
Thiamine (100 Mg/Ml) 2 Ml Vial IV 01/17/25 07:59
DAILY SHANE
Home Medications
�Medication �Instructions �Recorded
ascorbic acid (vitamin C) 1,000 mg 2,000 mg PO DAILY Supplement 12/19/24
tablet (Vitamin C)
aspirin 81 mg tablet,delayed 162 mg PO DAILY Blood Clot 12/19/24
release Prevention/Tx
atorvastatin 40 mg tablet 40 mg PO HS High Cholesterol 12/19/24
methocarbamol 750 mg tablet 750 mg PO HS Skeletal Muscle 12/19/24
Relaxant
metoprolol succinate 25 mg 25 mg PO HS Blood Pressure 12/19/24
tablet,extended release 24 hr
[2024-12-20 08:19] LABS: Ammonia < 9 umol/L (9-30)
[2024-12-20] MEDS: VITAMIN C 2000 MG PO (08:54)
[2024-12-20 09:00] VITALS: BP 113/67; BP 130/67; BP 135/75; PULSE 57; PULSE 68; PULSE 83
[2024-12-20] MEDS: THIAMINE INJECTION 100 MG IV (09:00)
[2024-12-20] MEDS: TOPROL XL 25 MG PO (09:00)
[2024-12-20] MEDS: ASPIR LOW (ENTERIC COATED) 162 MG PO (09:00)
[2024-12-20 09:10] LABS: ALT (SGPT) 19 U/L (0-50); AST (SGOT) 44 U/L (17-59); Albumin 3.9 g/dl (3.5-5.0); Alkaline Phosphatase 39 U/L (38-126); Blood Urea Nitrogen 17 mg/dl (9-20); Calcium 8.8 mg/dl (8.4-10.2); Carbon Dioxide 20 mmol/L (22-30); Chloride 116 mmol/L (98-107); Estimated Creatinine Clearance 51 ml/min; Glucose 74 mg/dl (70-99); Magnesium 2.0 mg/dl (1.6-2.3); Potassium 4.3 mmol/L (3.5-5.1); Sodium 143 mmol/L (135-145); Total Protein 6.1 g/dl (6.3-8.2); eGFR > 60.00
[2024-12-20 09:12] VITALS: BP 113/67; PULSE 83
[2024-12-20 09:16] LABS: TSH 1.08 uIU/ml (0.47-4.68)
[2024-12-20 09:17] LABS: Acetaminophen < 10 ug/ml (10-30); Salicylate 17.1 mg/dl (2.0-20.0)
[2024-12-20 09:22] VITALS: BP 113/53
[2024-12-20 09:51] LABS: Folate 6.6 ng/ml (2.76-20); Vitamin B12 280 pg/ml (239-931)
[2024-12-20] MEDS: VITAMIN B-12 1000 MCG PO (10:32)
[2024-12-20] MEDS: ATIVAN 0.5 MG PO (11:58)
--- NOTE | 2024-12-20 13:02 | EEG.RPT ---
Electroencephalogram Report
Recording
Date of EE12/20/24
Type of EEG: Routine
Length of EEG recordin minutes
Done with Video Recording: Yes
Patient Status: Inpatient
Recording Conditions: Awake and Drowsy
Hyperventilation Performed: No
Photic Stimulation Performed: Yes
Report
LESS THAN 1 HOUR REPORT
LESS THAN 1 HOUR EEG INTERPRETATION:
Mild to moderately abnormal EEG for age mild diffuse bihemispheric slowing
CLINICAL CORRELATION:
This study was suggestive of diffuse cortical dysfunction without focal abnormality. No seizures were recorded. If concerns remain regarding seizures, consideration for prolonged EEG recording may be given.
Clinical correlation is advised.
METHODS:
A 21 channel digitized electroencephalogram (EEG) was performed in the Clinical Neurophysiology Laboratory. The 10/20 international system of electrode placement was used with ECG and lateral/vertical eye movements recorded. The Blockboard quantitative
measurement system was utilized.
QUALITY OF STUDY:
Good
ELECTROENCEPHALOGRAPHER IMPRESSION(S):
Background
Medium amplitude fairly to poorly organized anterior-posterior voltage gradient of theta maximal activity
There were no significant asymmetries of background activity noted.
Sleep
Drowsiness present
Photic Stimulation
Failed to activate the record
ECG
Normal sinus rhythm
[2024-12-20 15:00] VITALS: BP 119/59
--- NOTE | 2024-12-20 15:10 | CM ---
Patient seen at bedside with physicians in [facility]. Patient anxious about MRI at this time. Patient plan is to return to apartment with when medically appropriate. CM will continue to follow for discharge planning needs.
Plan; home with VN pending medical treatment plan.
[2024-12-20 15:26] VITALS: BMI 23.8
--- NOTE | 2024-12-20 17:21 | PTOTSP ---
ST Acute Care Evaluation
Pt currently presents with clinical signs of a mild to moderate cognitive linguistic impairment (MMSE 17/30* - score may be closer to 19/30 due to hearing impairment). Pt's relative strengths were in the areas of temporal orientation (4/5),
registration of information (2/3), expressive language (naming, repeating) (2/3), and receptive language (reading, following directions) (4/4). The areas in which pt struggled more included spatial orientation (3/5), executive functioning
(attention/calculation) (2/5), delayed recall (0/3), and visuospatial skills (copying/writing) (0/2).
Other clinical observations made during this assessment include: hearing loss with no hearing aid use hx, visual impairment with use of progressive lenses, reduced insight/concern for deficits/hospitalization, highly distractible, fairly flat
affect, and poor eye-contact.
Recommendations:
- COMPANY MANAGER to f/u re: neurology findings/recommendations and to gather more information regarding pt's baseline cognitive linguistic functioning from family to determine the extent in which the pt's current cognitive presentation is consistent with
baseline.
- COMPANY MANAGER to f/u re: further cognitive linguistic assessment/tx while admitted in acute care to aid in the determination of needs for support for next level of care.
--- NOTE | 2024-12-20 18:41 | CS.PSYCHR ---
Consult Summary - Psychiatry
-
pt seen by me this afternoon in consultation for new onset visual hallucinations in setting of insidious dementia development.
74 yo man brought to hospital by due to visual and auditory hallucinations. Pt is convinced that they are real, that is not being honest for some reason ('maybe she is seeing someone else') now wondereing how they will be able to continue
their marriage.
No prior psychiatric history, though has been noted to have worsening memory of late.
Pt denies any concerns, aside from failing to understand why is saying such things (describes seeing a pattern at the top of their windows, which 'claims' not to see.)
Aware of some memory problems but 'nothing out of the ordinary.'
On very few meds; able to say that he had a heart problem, says he had two valves replaced (appears to have been stents.)
One daughter, one granddaughter per patient.
Reports he attended [employer], then [employer], joined [employer], worked in [place] and at [employer]. Retired. Lives with , daughter nearby.
On exam pt is sitting in chair, pleasant and cooperative. Calmly denies that he has hallucinations, says is mistaken or deliberately lying. Concerned that she may be seeing someone else, has some worry about the way forward for them, proclaims
that he loves her. Notable deficits in formal testing: cannot name president (makes the excuse 'it's because I don't like him') gives year as 2524, twice (before correcting himself) gets date and day of week wrong.
Says he stopped working 15 years ago, in 1979.
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
Rec: As mentioned by neuro, would do screens for treatable forms of dementia (don't see RPR) replete B12
[2024-12-20] MEDS: LOVENOX 40 MG SC (19:45)
[2024-12-20] MEDS: LIPITOR 40 MG PO (19:57)
[2024-12-20] MEDS: METHOCARBAMOL 750 MG PO (19:57)
[2024-12-20 23:39] VITALS: BP 113/58; BP 116/60; BP 99/42; PULSE 58; PULSE 61; PULSE 66
--- NOTE | 2024-12-21 07:21 | W.PN.HOSP.TC ---
Addendum entered and electronically signed by Marina Chaidez MD 12/21/24 16:12:
I saw and evaluated the patient independently. I reviewed and discussed the resident�s note and agree with findings and plan as documented by Dr. Brunner.
GENERAL: well developed, well nourished, male in no apparent distress
HEENT: NC/AT--no O2 requirements
HEART: regular rate and rhythm, +S1, +S2
LUNGS : clear to auscultation bilaterally
ABDOM: soft, nontender, nondistended, + bowel sounds
EXT: no cyanosis, clubbing, or edema
NEUROLOGIC: strength 5/5 x 4 ext, right facial droop/flattening of nasolabial fold ( relates that this is new)
Hallucinations--visual and auditory--pt states that he does see what he sees despite what his says--head CT without acute findings--broad differential--infection, metabolic, medication over or underdosing, malignancy, vitamin deficiencies,
dementia/Parkinson's etc, stroke, seizures--apprec neuro/psych-- did not tolerate brain MRI, will need to do as outpt in open MRI setting-- low B12 noted-- oral supplementation at d/c-- folate, TSH, NH3 levels WNL--cont thiamine, tox screen neg,
blood and urine cultures, CXR, acetaminophen level <10 and salicylate level 17 (pt on 162mg asa daily)--PT/OT/speech
Ambulatory dysfunction� PT and OT
Insomnia� Melatonin
CAD s/p CABG x 4� Continue aspirin 162 mg p.o. daily� Continue statin� Continue metoprolol succinate 25 mg p.o. daily
Lower back pain-� Continue methocarbamol 750 mg p.o. nightly
DVT Proph-- SC lovenox
CODE STATUS-- Full code
OK for D/C
Original Note:
Today's Communication/Plan
-
Anticipate discharge today on thiamine and B12 supplementation.
Instructed patient to get outpatient open MRI, since he cannot tolerate close MRI.
Assessment / Plan
Assessment / Plan
IMPRESSION:
Mr. Osvaldo Carrera is a 74-year-old man with a PMH notable for CAD s/p CABG x 4, heart failure hospitalization 2019, lower back pain s/p bilateral L5 steroid injection, left hip repair after fall, cataract s/p surgery, who presented with auditory
and visual hallucinations in the setting of chronic memory and gait changes.
PLAN:
#Hallucinations
CT head noncontrast: No acute intracranial abnormality. Mild age-related parenchymal atrophy. No intra- or extra-axial mass, hemorrhage, or fluid collection. Mild subcortical, deep, and periventricular white matter low-attenuation, compatible with
changes of chronic small vessel ischemic disease.
� Baseline EKG 12/20/2024: Sinus bradycardia. When compared with ECG of 08/10/2023, ventricular rate has decreased by 37 bpm. QT shortened 361 ms (corrected)
Neurologic workup
� Brain MRI with and without contrast. 0.5 mg Ativan p.o. on-call for MRI. Also recommended eye mask and earbuds. Patient did not tolerate brain MRI.
� Neurology consulted: B12 1g PO. Agree with B1 supplement
� EEG: Mild to moderately abnormal EEG for age mild diffuse bihemispheric slowing. CLINICAL CORRELATION: diffuse cortical dysfunction without focal abnormality. No seizures were recorded. If concerns remain regarding seizures, consideration for
prolonged EEG recording may be given.
Psychiatry consulted
� Recommended screening for treatable forms of dementia, such as RPR
-Patient made more dementia/cognitive errors made during conversation: He said he was stopped working 15 years ago in 1979. Cannot name president and gives excuse that is because he does not like him. Says the year is 2524 twice. Named wrong date
and day of week. States he has had 2 heart valves replaced (but actually 4 stents placed).
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
Metabolic workup: folate, tsh normal
� B12 280 low. B12 1000 mg PO daily supplement
� Thiamine PO 100 mg daily
� Daily CMP
Toxicology workup negative: Patient denied missing home meds or double dosing
� Urine toxicology screen normal.
� Serum Tylenol, salicylate, ammonia normal
Infectious workup: No UTI on UA
� Chest x-ray
� Daily CBC
CLOSING MACHINE OPERATOR therapy consult: MMSE demonstrated mild to moderate cognitive-linguistic impairment
#Ambulatory dysfunction
� PT and OT recommended outpatient therapy
#Insomnia
� Melatonin 500 mg p.o. nightly
#CAD s/p CABG x 4
� Continue aspirin 162 mg p.o. daily
� Continue atorvastatin 40 mg p.o. nightly
� Continue metoprolol succinate 25 mg p.o. daily
#Lower back pain
� Continue methocarbamol 7 to 50 mg p.o. nightly
DVT PPx: Enoxaparin 40 mg subcutaneous every afternoon
Diet: Regular
Bowel regimen
CODE STATUS: Full code
Anticipated Discharge: Today
Subjective/Interval History
-
Date of Service: December 21, 2024
Objective Data
-
Labs:
Laboratory Results
12/21/24
07:19
WBC Pending
Hgb Pending
Hct Pending
Plt Count Pending
Sodium Pending
Potassium Pending
Chloride Pending
Carbon Dioxide Pending
BUN Pending
Creatinine Pending
Glucose Pending
Calcium Pending
Total Bilirubin Pending
AST Pending
ALT Pending
Alkaline Phosphatase Pending
Vital Signs:
Vital Signs
Temp Pulse Resp BP Pulse Ox
98.2 F 57 18 119/59 100
12/20/24 23:39 12/20/24 15:00 12/20/24 23:39 12/20/24 15:00 12/20/24 23:39
I&O
12/20/24 12/21/24 12/22/24
06:59 06:59 06:59
Intake Total 470 / 470
Balance 470 / 470
Review of Systems
-
Unable to obtain full review of systems at this time due to: Dementia
History Source: Patient
Physical Exam
-
General: Well Developed, Well Nourished, No Apparent Distress and Comfortable
HEENT: Normocephalic, Atraumatic, Moist Mucous Membranes, Anicteric, Nose Appears Normal and Ears Appear Normal
Respiratory: Clear to Auscultation
Cardiac: Regular Rhythm and S1/S2
GI: Soft, Nontender, Nondistended and Normal Bowel Sounds
Musculoskeletal: No Clubbing, No Cyanosis and No Edema
Skin: Warm and Dry
Neuro: Awake and Alert
Psych: Calm and Depressed
[2024-12-21] MEDS: ASPIR LOW (ENTERIC COATED) 162 MG PO (07:58)
[2024-12-21] MEDS: THIAMINE INJECTION 100 MG IV (07:58)
[2024-12-21] MEDS: TOPROL XL 25 MG PO (07:58)
[2024-12-21] MEDS: FLUSH (NSS) 1 FLUSH IV (07:59)
[2024-12-21 08:01] VITALS: BP 144/70
[2024-12-21] MEDS: VITAMIN B-12 1000 MCG PO (08:01)
[2024-12-21] MEDS: VITAMIN C 2000 MG PO (08:01)
[2024-12-21 08:37] LABS: Hematocrit 37.2 % (39.0-52.0); Hemoglobin 11.6 g/dL (13.0-18.0); Mean Corp Hgb Conc. 31.2 g/dL (33.0-37.0); Mean Corpuscular Volume 95.4 fL (80.0-94.0); Nucleated Red Blood Cells % 0 % (-); Platelet Count 188 10^3/uL (130-400); Red Cell Dist. Width 14.8 % (11.5-14.5)
[2024-12-21 09:20] LABS: ALT (SGPT) 24 U/L (0-50); AST (SGOT) 46 U/L (17-59); Albumin 3.8 g/dl (3.5-5.0); Alkaline Phosphatase 39 U/L (38-126); Blood Urea Nitrogen 14 mg/dl (9-20); Calcium 9.0 mg/dl (8.4-10.2); Carbon Dioxide 21 mmol/L (22-30); Chloride 114 mmol/L (98-107); Estimated Creatinine Clearance 55 ml/min; Glucose 70 mg/dl (70-99); Magnesium 1.9 mg/dl (1.6-2.3); Potassium 4.1 mmol/L (3.5-5.1); Sodium 138 mmol/L (135-145); eGFR > 60.00
[2024-12-21 10:01] LABS: Total Protein 6.1 g/dl (6.3-8.2)
--- NOTE | 2024-12-21 11:10 | W.PN.UPDATE ---
Update Note
Progress Note Update
patient seen chart reviewed. 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 at this moment he is not seeing or hearing things but during the night he told me 'they were having a libertarian upstairs' i asked him if he meant outside his door as
the unit can be noisy but he assured me it was 'upstairs' we are on the fourth floor so there is no upstairs. i suggested it was may have rained last night but he assured me it was voices he heard. again not at this time. nursing assured me he is
cooperative. there has not been agitation. re visual hallucinations asked if he had any eye maladies eg macular degeneration glaucoma but he denied this and demonstrated to me how well he could see from afaar (read signs in room....) agree w mri
eeg. ordered rpr as suggested by dr alicia b12 being repleted folate wnl tsh wnl. will follow loosely
--- NOTE | 2024-12-21 12:20 | W.DCSUMMARY ---
Addendum entered and electronically signed by Marina Chaidez MD 12/21/24 16:15:
Read, reviewed, and agree. See same day progress note for additional details. Time spent coordinating care, DC planning, review of DC plan of care with resident, transition of care, review of records in EMR, med rec, consults, notes, d/w
consultants, nursing, family, and CM = 36 minutes
Original Note:
Discharge Summary
Discharge Data
Date of Admission: 12/19/24
Date of Discharge: 12/21/24
-
Pending Results: Yes
Additional Pending Results:
RPR
Hospital Course
Mr. Osvaldo Carrera is a 74-year-old man with a PMH notable for CAD s/p CABG x 4, heart failure hospitalization 2020, lower back pain s/p bilateral L5 steroid injection, left hip repair after fall, cataract s/p surgery, who presented with auditory
and visual hallucinations in the setting of chronic memory and gait changes.
4 days before admission at 4:30 AM, he woke his up fully dressed and was not sure if it was day or night. He heard people in a part of their house, whereas his did not hear anyone. The denies the patient having had hallucinations
before. The patient has also become fixated on his posters.
The noticed that the patient's walking has become slow. The demonstrated the patient's walking as 1 step at a time or shuffling (the patient's gait appeared normal on an abbreviated gait exam; the patient does not always have shuffling
gait). The patient's states that it is difficult for her to get him to step onto a small curb. They live in a one-story place without steps. The patient's endorsed him turning en bloc, furniture surfing with a preference for the right
side. She denied tremors nor falls. She endorsed him seeming more mentally clear in the morning, suggesting sundowning. The patient drives. The denies him getting lost, but endorses him misplacing objects/losing track of objects.
The patient endorsed tingling in his hands and feet, as well as his feet easily getting cold and then feeling numb. The endorsed decreased appetite for a week. The patient denied sick contacts.
ED course:
Mild dehydration with creatinine of 1.5 (baseline 1.2), consistent with history of decreased appetite for 1 week in the setting of mental status changes.
CT head noncon:
FINDINGS:
Mild age-related parenchymal atrophy. No intra- or extra-axial mass, hemorrhage, or fluid collection. Mild subcortical, deep, and periventricular white matter low-attenuation, compatible with changes of chronic small vessel ischemic disease. The
imaged paranasal sinuses and mastoid air cells are clear.
IMPRESSION:
No acute intracranial abnormality.
Neurologic workup with EEG and brain MRI, which patient did not tolerate with Ativan. Recommended outpatient open MRI. Neurology was consulted, and recommended B12 and thiamine supplementation. We advised patient to see neurology outpatient.
MMSE 17 out of 30. Psychiatry was consulted, and found the patient's hallucinations to be likely due to a neurodegenerative disorder.
Metabolic workup with urine toxicology screen, serum Tylenol/salicylate/ammonia levels, and vitamins were normal except for low vitamin B12. Started and discharged patient on B12 and thiamine supplementation. Infectious workup was negative
Worked with PT and was recommended outpatient PT for ambulatory dysfunction/slow, shuffling gait/difficulty with steps.
Primary diagnosis:
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
Secondary diagnoses:
Ambulatory dysfunction
Hypertension
Insomnia
CAD status post CABG x 4
Lower back
Depression
#Hallucinations
CT head noncontrast: No acute intracranial abnormality. Mild age-related parenchymal atrophy. No intra- or extra-axial mass, hemorrhage, or fluid collection. Mild subcortical, deep, and periventricular white matter low-attenuation, compatible with
changes of chronic small vessel ischemic disease.
� Baseline EKG 12/20/2024: Sinus bradycardia. When compared with ECG of 08/10/2023, ventricular rate has decreased by 37 bpm. QT shortened 361 ms (corrected)
Neurologic workup
� Brain MRI with and without contrast. 0.5 mg Ativan p.o. on-call for MRI. Also recommended eye mask and earbuds. Patient did not tolerate brain MRI.
� Neurology consulted: B12 1g PO. Agree with B1 supplement
� EEG: Mild to moderately abnormal EEG for age mild diffuse bihemispheric slowing. CLINICAL CORRELATION: diffuse cortical dysfunction without focal abnormality. No seizures were recorded. If concerns remain regarding seizures, consideration for
prolonged EEG recording may be given.
Psychiatry consulted
� Recommended screening for treatable forms of dementia, such as RPR
-Patient made more dementia/cognitive errors made during conversation: He said he was stopped working 15 years ago in 1979. Cannot name president and gives excuse that is because he does not like him. Says the year is 2524 twice. Named wrong date
and day of week. States he has had 2 heart valves replaced (but actually 4 stents placed).
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
Metabolic workup: folate, tsh normal
� B12 280 low. B12 1000 mg PO daily supplement
� Thiamine PO 100 mg daily
� Daily CMP
Toxicology workup negative: Patient denied missing home meds or double dosing
� Urine toxicology screen normal.
� Serum Tylenol, salicylate, ammonia normal
Infectious workup: No UTI on UA
� Chest x-ray
� Daily CBC
[employer] therapy consult: MMSE 17/30 demonstrated mild to moderate cognitive-linguistic impairment
#Ambulatory dysfunction
� PT and OT recommended outpatient therapy
#Insomnia
� Melatonin 500 mg p.o. nightly
#CAD s/p CABG x 4
� Continue aspirin 162 mg p.o. daily
� Continue atorvastatin 40 mg p.o. nightly
� Continue metoprolol succinate 25 mg p.o. daily
#Lower back pain
� Continue methocarbamol 7 to 50 mg p.o. nightly
Discharge Plan
-
Patient Disposition: Home (Routine Discharge)
Discharge Diagnosis/Procedures: Auditory and visual hallucinations
Mild to moderate cognitive impairment
Hypertension
Vitamin B12 deficiency
Ambulatory dysfunction
Insomnia
History CAD
History of back pain
Condition: Good
Diet: 2 Gram Sodium
Activity: With assistance
Driving Restrictions: No driving
Other Services: PT
Referrals:
Shan Spangler MD [Active, Neurology] - in two to three weeks
Referral Note: Please discuss the things you see and hear that your does not agree with.
Job Cruz MD [Family Provider, Internal Medicine]
Additional Discharge Medication Instructions: Please follow-up with your primary care physician within a week for this hospital stay, including pending labs.
Please see a neurologist outpatient.
Please get a brain MRI outpatient, which can be done within open MRI that is better for claustrophobia.
Please take vitamin B12 and thiamine supplements daily.
Prescriptions:
New
cyanocobalamin (vitamin B-12) 500 mcg Tablet
1,000 mcg PO DAILY Qty: 30 0RF
thiamine mononitrate (vit B1) 100 mg Tablet
100 mg PO DAILY Qty: 30 0RF
Continued
atorvastatin 40 mg tablet
40 mg PO HS
metoprolol succinate 25 mg tablet extended release 24 hr
25 mg PO HS
ascorbic acid (vitamin C) [Vitamin C] 1,000 mg Tablet
2,000 mg PO DAILY
aspirin 81 mg Tablet,Delayed Release (Dr/Ec)
162 mg PO DAILY
methocarbamol 750 mg Tablet
750 mg PO HS
Discharge Date and Time
Print Language: NIGERIEN
[2024-12-21 13:52] VITALS: BP 142/68; PULSE 57; O2SAT 100
[2024-12-21 14:37] VITALS: BP 136/68
[2024-12-21 14:38] VITALS: BP 128/68; BP 129/67; BP 136/68; PULSE 57; PULSE 60; PULSE 63
--- NOTE | 2024-12-21 15:35 | CM ---
Patient seen at bedside with physician on . Patient eager for discharge home. Patient may benefit from out patient therapy and physician will provide script for outpatient therapies. Physician spoke on the phone and reviewed with his
findings of work up/tests. Patient will provide transportation home and CM will review IMM with patient and . CM will continue to follow for discharge planning needs.
Plan; home with family and outpatient therapy.
--- NOTE | 2024-12-21 15:45 | CM ---
Patient seen at bedside with physician. Patient stated that he wants to go home. Physician called to patient and updates provided. Patient to transport him home. Patient to follow up with outpatient cognitive and speech therapies,
physician provided script for patient . Patient reviewed IMM and signed form placed on chart. CM will continue to follow for discharge planning needs.
Plan; home with outpatient follow up
[2024-12-22 13:33] LABS: Syphilis/T. pallidum Ab Reflex Negative (Negative)
== END 2024-12-21 16:34 | disposition home or self-care (01) | DRG 57 ==
LOC: 4 WEST ACU 18:23
PROVIDERS: Psychiatry & Neurology Psychiatry; ADMITTING PHYSICIAN Internal Medicine; CONSULT PHYSICIAN Psychiatry & Neurology Neurology; EMERGENCY PHYSICIAN Student in an Organized Health Care Education/Training Program; FAMILY PHYSICIAN Internal Medicine Geriatric Medicine; OTHER PHYSICIAN Psychiatry & Neurology Psychiatry
DX: G31.09 Other frontotemporal neurocognitive disorder (principal); F02.82 Dementia in other diseases classified elsewhere, unspecified severity, with psychotic disturbance; F02.818 Dementia in other diseases classified elsewhere, unspecified severity, with other behavioral disturbance; F02.83 Dementia in other diseases classified elsewhere, unspecified severity, with mood disturbance; I25.10 Atherosclerotic heart disease of native coronary artery without angina pectoris; Z95.1 Presence of aortocoronary bypass graft; F32.A Depression, unspecified; R29.810 Facial weakness; R26.2 Difficulty in walking, not elsewhere classified; G47.00 Insomnia, unspecified; Z87.891 Personal history of nicotine dependence; I50.9 Heart failure, unspecified; I11.0 Hypertensive heart disease with heart failure; Z91.81 History of falling; Z79.82 Long term (current) use of aspirin; Z79.899 Other long term (current) drug therapy; Z98.42 Cataract extraction status, left eye; E53.8 Deficiency of other specified B group vitamins; E86.0 Dehydration; G89.29 Other chronic pain; F10.11 Alcohol abuse, in remission
CPT/HCPCS: 70450; 71046; 80053; 80143; 80179; 80306; 81003; 81015; 82140; 82607; 82746; 83735; 84443; 85025; 86780; 92523; 93005; 95816; 96360; 97116; 97162; 97166; 99284